=== PATIENT | female | born 1995 | race Caucasian/White ===

== ENCOUNTER → 2016-08-18 | Outpatient (CLI) | payer MEDICAID ==
[~2016-08-18] MED LIST: FERR-74 PO; HYDR-3812 PO; IBUP-1773 PO; NITR-65 PO; PREN1TAB79 PO
--- NOTE | 2016-08-18 14:13 | Diagnostic Imaging Report ---
EXAMINATION: OB ultrasound. INDICATION: Size and dates. COMPARISON: There are no recent studies available for comparison. FINDINGS: There is a gestational sac within the uterus containing a single live fetus. heart motion was noted and a rate of 176 bpm was recorded. The crown-rump length suggests the estimated gestational age is 9 weeks 1 day + / - 1 week. There were no obvious abnormalities identified. The amniotic fluid volume is within normal limits. At this time, it is not certain whether the placenta will develop. There is no pelvic mass or free fluid collection evident. IMPRESSION: 1. There is a single live intrauterine approximately 9 weeks 1 day gestation + / - 1 week. EDC is 03/22/2017. 2. There were no obvious abnormalities identified. If a more sensitive evaluation of the anatomy is desired, then a 10-12 week followup ultrasound exam should be obtained. Dictated by: Dictated on workstation # [id number]
== END ==
LOC: RAD 12:07
PROVIDERS: ATTEND Family Medicine
DX: Z34.81 Encounter for supervision of other normal pregnancy, first trimester (principal)
CPT/HCPCS: 76801

== ENCOUNTER 2016-09-17 02:58 | Emergency (ER) | payer MEDICAID, OTHER ==
[~2016-09-17] VITALS: Ht 170.2 cm; Wt 104.3 kg
[2016-09-17 03:27] LABS: BASOPHILS % (AUTO) 0 % (0-10); EOSINOPHILS # (AUTO) 0.1 10^3/uL (0.0-0.3); EOSINOPHILS % (AUTO) 1 % (0-10); LYMPHOCYTES # (AUTO) 2.6 X 10^3 (1.0-4.0); LYMPHOCYTES % (AUTO) 34 % (12-44); MEAN CORPUSCULAR HEMOGLOBIN 28 PG (25-34); MEAN CORPUSCULAR HGB CONC 35 G/DL (32-36); MEAN CORPUSCULAR VOLUME 79 FL (80-99); MEAN PLATELET VOLUME 11.8 FL (7.4-10.4); MONOCYTES # (AUTO) 0.5 X 10^3 (0.0-1.0); MONOCYTES % (AUTO) 7 % (0-12); NEUTROPHILS # (AUTO) 4.3 X 10^3 (1.8-7.8); NEUTROPHILS % (AUTO) 57 % (42-75); PLATELET COUNT 201 10^3/uL (130-400); RED BLOOD COUNT 4.27 10^6/uL (4.35-5.85); RED CELL DISTRIBUTION WIDTH 14.1 % (10.0-14.5); WHITE BLOOD COUNT 7.5 10^3/uL (4.3-11.0)
--- NOTE | 2016-09-17 03:44 | ED GU-Female ---
General Chief Complaint: -Female Stated Complaint: POSS MISCARRIAGE Nursing Triage Note: PT REPORTS BLEEDING ONSET 1 HOUR. SHE REPORTS SHE IS APPROX 14 WEEKS . SHE IS ALSO C/O ABD PAIN. Nursing Sepsis Screen: No Definite Risk Source: patient Exam Limitations: no limitations History of Present Illness Time seen by provider: 03:28 Initial Comments Here with report of vaginal bleeding. Reports that she is approximately 14 weeks and had sudden onset of bleeding. She reports that she had some lower abdominal pain is improved now. This occurred while she was at work at [employer]. Denies any injury. Timing/Duration: just prior to arrival Severity/Quality: moderate Location: suprapubic Radiation: vaginal Activities at Onset: other Sexual [place] History: less than 2 months ago, single partner (standing) Associated Symptoms: No dysuria, No fever/chills, No lower back pain, No nausea /vomiting, No urinary frequency Allergies and Home Medications Allergies Coded Allergies: No Known Drug Allergies (Unverified , 04/12/15) Home Medications Vit W-Ca,Fe,FA(<1 mg) 1 Each Tablet 1 TAB PO DAILY (Reported) Constitutional: see HPINo chills, No fever EENTM: no symptoms reported Respiratory: no symptoms reported Cardiovascular: no symptoms reported Gastrointestinal: see HPI abdominal painNo nausea, No vomiting Genitourinary: see HPI hematuria other (vaginal bleeding) : Yes Musculoskeletal: no symptoms reported Psychiatric/Neurological: No Symptoms Reported Past Irwqpgo-Phmovr-Ebahmd Hx Patient Social History Alcohol Use: Denies Use Recreational Drug Use: No Smoking Status: Never a Smoker 2nd Hand Smoke Exposure: No Recent Foreign Travel: No Contact w/Someone Who Travel: No Recent Infectious Disease Expo: No Recent Hopitalizations: No Immunizations Up To Date Tetanus Booster (TDap): Less than 5yrs Surgeries HX Surgeries: Yes (ACHILLES TENDON, WISDOM TEETH) Respiratory Hx Respiratory Disorders: No Cardiovascular Hx Cardiac Disorders: No Neurological Hx Neurological Disorders: Yes Neurological Disorders: Cerebral Palsy Reproductive System Hx Reproductive Disorders: Yes Sexually Transmitted Disease: Yes (Chlymidia tx'd end of September) HIV/AIDS: No Genitourinary Hx Genitourinary Disorders: Yes (UTI 11 weeks ago) Gastrointestinal Hx Gastrointestinal Disorders: No Musculoskeletal Hx Musculoskeletal Disorders: Yes ("spine rotated" ) Endocrine Hx Endocrine Disorders: No HEENT HX ENT Disorders: No Cancer Hx Cancer: No Psychosocial Hx Psychiatric Problems: Yes Behavioral Health Disorders: Depression Integumentary HX Skin/Integumentary Disorder: No Blood Transfusions Hx Blood Disorders: No Adverse Reaction to a Blood Tr: No Reviewed Nursing Assessment Reviewed/Agree w Nursing PMH: Yes Family Medical History Significant Family History: No Pertinent Family Hx Family Medial History: Arthritis FH: COPD (chronic obstructive pulmonary disease) FH: cancer Heart issue, unknown Hypertension Physical Exam Vital Signs Vital Sign - Last 12Hours 09/17/16 03:15 Temp 98.4 Pulse 80 Resp 16 B/P 130/84 Pulse Ox 98 O2 Delivery Room Air Capillary Refill : Less Than 3 Seconds General Appearance: WD/WN no apparent distress HEENT: TMs normal pharynx normal Neck: full range of motion supple Cardiovascular: regular rate, rhythm no murmur Respiratory: lungs clear normal breath sounds Gastrointestinal: non tender soft Back: normal inspection no CVA tenderness no vertebral tenderness Extremities: non-tender normal inspection Neurologic/Psychiatric: alert oriented x 3 Skin: normal color warm/dry Progress/Results/Core Measures Results/Orders Lab Results Laboratory Tests Test 09/17/16 03:10 09/17/16 03:15 Range/Units Urine Bacteria NEGATIVE /HPF Urine Bilirubin NEGATIVE NEGATIVE Urine Casts NONE /LPF Urine Clarity CLOUDY H Urine Color RED H Urine Crystals NONE /LPF Urine Culture Indicated NO Urine Glucose (UA) NEGATIVE NEGATIVE Urine Ketones NEGATIVE NEGATIVE Urine Leukocyte Esterase NEGATIVE NEGATIVE Urine Mucus LARGE H /LPF Urine Nitrite NEGATIVE NEGATIVE Urine Protein 4+ NEGATIVE Urine RBC TNTC H /HPF Urine RBC (Auto) 5+ H NEGATIVE Urine Specific [place] 1.020 1.016-1.022 Urine Urobilinogen NORMAL NORMAL MG/DL Urine WBC RARE /HPF Urine pH 6.5 5-9 Alanine Aminotransferase (ALT/SGPT) 14 0-55 U/L Albumin 4.0 3.2-4.5 G/DL Alkaline Phosphatase 92 40-136 U/L Anion Gap 13 5-14 MMOL/L Aspartate Amino Transf (AST/SGOT) 13 5-34 U/L BUN/Creatinine Ratio 11 Basophils # (Auto) 0.0 0.0-0.1 10^3/uL Basophils (%) (Auto) 0 0-10 % Blood Urea Nitrogen 7 7-18 MG/DL Calcium Level 9.1 8.5-10.1 MG/DL Carbon Dioxide Level 19 L 21-32 MMOL/L Chloride Level 105 98-107 MMOL/L Creatinine 0.61 0.60-1.30 MG/DL Eosinophils # (Auto) 0.1 0.0-0.3 10^3/uL Eosinophils (%) (Auto) 1 0-10 % Estimat Glomerular Filtration Rate > 60 Glucose Level 78 70-105 MG/DL Hematocrit 34 L 35-52 % Hemoglobin 11.8 11.5-16.0 G/DL Human Chorionic Gonadotropin, Quant 72900 H <5 MIU/ML Lymphocytes # (Auto) 2.6 1.0-4.0 X 10^3 Lymphocytes (%) (Auto) 34 12-44 % Mean Corpuscular Hemoglobin 28 25-34 PG Mean Corpuscular Hemoglobin Concent 35 32-36 G/DL Mean Corpuscular Volume 79 L 80-99 FL Mean Platelet Volume 11.8 H 7.4-10.4 FL Monocytes # (Auto) 0.5 0.0-1.0 X 10^3 Monocytes (%) (Auto) 7 0-12 % Neutrophils # (Auto) 4.3 1.8-7.8 X 10^3 Neutrophils (%) (Auto) 57 42-75 % Platelet Count 201 130-400 10^3/uL Potassium Level 3.3 L 3.6-5.0 MMOL/L Red Blood Count 4.27 L 4.35-5.85 10^6/uL Red Cell Distribution Width 14.1 10.0-14.5 % Sodium Level 137 135-145 MMOL/L Total Bilirubin 0.3 0.1-1.0 MG/DL Total Protein 6.9 6.4-8.2 G/DL White Blood Count 7.5 4.3-11.0 10^3/uL My Orders Orders-LOS SCHMIDT MD Cbc With Automated Diff (09/17/16 03:16) Hcg,Quantitative (09/17/16 03:16) Abo Rh Type (09/17/16 03:16) Us Ob Single Fetus<14 [id number] (09/17/16 03:16) Comprehensive Metabolic Panel (09/17/16 03:16) Ua Culture If Indicated (09/17/16 03:26) Vital Signs/I&O Vital Sign - Last 12Hours 09/17/16 03:15 Temp 98.4 Pulse 80 Resp 16 B/P 130/84 Pulse Ox 98 O2 Delivery Room Air Blood Pressure Mean: 99 Progress Note : Progress Note Seen and evaluated. Labs, UA and ultrasound ordered. Monitor patient. 0440: I have discussed the case with Dr. Blanton, on-call for OB. Patient is a patient of Dr. Brooks. She will be discharged home on pelvic rest and early follow-up. All findings and concerns were discussed with the patient who verbalize understanding. Discharged home with return precautions. Patient verbalize understanding instructions and agreement with plan. Diagnostic Imaging Diagonstic Imaging: Ultrasound Plain Films/CT/US/NM/MRI: pelvis Comments Single live intrauterine with an estimated gestational age of 13-6/7 per crown-rump length measurement of 7.67 cm. heart rate is 136. Large amount of subchorionic hemorrhage, measuring about 7.8 x 1.6 x 6.9 cm in anterior aspect of the uterus, warrants close follow-up. The cervix is closed and measures about 4.2 cm in length. Per statrad read. Departure Impression Impression: Primary Impression: Subchorionic hemorrhage in first trimester Additional Impression: Threatened miscarriage in early Disposition: 01 HOME, SELF-CARE Condition: Stable Departure-Patient Inst. Decision time for Depature: 04:46 Referrals: ISABELLA BROOKS MD (PCP/Family) Primary Care Physician Patient Instructions: Threatened Miscarriage (DC) Add. Discharge Instructions: All discharge instructions reviewed with patient and/or family. Voiced understanding. Pelvic rest until cleared by her doctor meaning no intercourse or intravaginal insertion. Follow-up with your doctor on Monday or Monday. Return for worse pain, vomiting, increased bleeding, increased cramping, fever or other concerns as needed. You will need to be off work until cleared by your physician. No lifting and no exertion until cleared by your physician. Work/School Note: Work Release Form Date Seen in the Emergency Department: Sep 17, 2016 Return to Work: Sep 22, 2016 Restrictions: Need Release from Doctor Copy Copies To 1: ISABELLA BROOKS MD, TIMOTHY D MD Sep 17, 2016 03:44
[2016-09-17 03:48] LABS: ALANINE AMINOTRANSFERASE 14 U/L (0-55); ANION GAP 13 MMOL/L (5-14); ASPARTATE AMINO TRANSFERASE 13 U/L (5-34); BILIRUBIN,TOTAL 0.3 MG/DL (0.1-1.0); BLOOD UREA NITROGEN 7 MG/DL (7-18); BUN/CREATININE RATIO 11; CALCIUM 9.1 MG/DL (8.5-10.1); CARBON DIOXIDE 19 MMOL/L (21-32); CHLORIDE 105 MMOL/L (98-107); CREATININE SERUM 0.61 MG/DL (0.60-1.30); GFR ESTIMATED > 60; GLUCOSE 78 MG/DL (70-105); POTASSIUM 3.3 MMOL/L (3.6-5.0); SODIUM 137 MMOL/L (135-145); TOTAL PROTEIN 6.9 G/DL (6.4-8.2)
[2016-09-17 03:53] LABS: BILIRUBIN,URINE NEGATIVE (NEGATIVE); KETONES,URINE NEGATIVE (NEGATIVE); LEUKOCYTE ESTERASE ,URINE NEGATIVE (NEGATIVE); NITRITE,URINE NEGATIVE (NEGATIVE); PH,URINE 6.5 (5-9); PROTEIN,URINE 4+ (NEGATIVE); UROBILINOGEN,URINE NORMAL (NORMAL); WBC,URINE RARE /HPF
[2016-09-17 04:54] VITALS: BP 130/84
--- NOTE | 2016-09-17 07:24 | Diagnostic Imaging Report ---
INDICATION: Bleeding. TECHNIQUE: Multiple realtime grayscale images were obtained over the gravid uterus in various projections. FINDINGS: There is a single living intrauterine with sonographically estimated gestational age of 13 weeks 6 days. This is based on a crown-rump length of 7.67 cm. The heart rate is 136 beats per minute. There is a large amount of subchorionic hemorrhage measuring 7.8 x 1.6 x 6.9 cm. This is in the anterior aspect of the uterus. This warrants close followup. The cervix is closed and measures 4.2 cm in length. IMPRESSION: Single living intrauterine with sonographically estimated gestational age of 13 weeks 6 days and estimated date of confinement of March 19, 2017. Subchorionic hemorrhage which warrants close followup. Otherwise unremarkable. Dictated by: Dictated on workstation # [id number]
== END 2016-09-17 04:54 | disposition home or self-care (01) ==
LOC: EDUNIT# 02:58 → ER 03:00
DX: O20.8 Other hemorrhage in early pregnancy (principal); Z3A.13 13 weeks gestation of pregnancy
CPT/HCPCS: 36415; 76801; 80053; 81000; 84702; 85025; 86900; 86901; 99283

== ENCOUNTER 2017-02-05 12:33 | Outpatient (CLI) | payer MEDICAID ==
[~2017-02-05] VITALS: Ht 170.2 cm; Wt 107.0 kg
[2017-02-05 13:15] VITALS: BP 127/62
[2017-02-05] MEDS ORDERED: D5 LR IV SOLUTION 1,000 ML IV SCH (14:00)
--- NOTE | 2017-02-06 12:14 | Physician Query-Final Dx ---
AYAZ LÓPEZ 02/06/17 1214: Clinic Account Progress/Dx Physician Query: Please give diagnosis Date of Service Feb 05, 2017 at 12:33 DANIS CHRISTINA MD 02/07/17 1029: Clinic Account Progress/Dx DIAGNOSIS: Diagnosis false labor AYAZ LÓPEZ Feb 06, 2017 12:14 DANIS CHRISTINA MD Feb 07, 2017 10:29
== END 2017-02-05 15:31 | disposition home or self-care (01) ==
LOC: LDRP 12:33 → WSo 12:33
PROVIDERS: ATTEND Obstetrics & Gynecology
DX: O47.03 False labor before 37 completed weeks of gestation, third trimester (principal); Z3A.34 34 weeks gestation of pregnancy
CPT/HCPCS: 96360; 99214

== ENCOUNTER 2017-08-23 22:41 | Emergency (ER) | payer MEDICAID ==
[~2017-08-23] VITALS: Ht 170.2 cm; Wt 110.2 kg
[~2017-08-23 22:41] MED LIST changes: +ACHD5005 PO; -FERR-74 PO; +FERR325T18 PO; -HYDR-3812 PO
--- OUTSIDE RECORDS SUMMARY | 2017-08-23 23:47 | XMS REPORT ---
Author ISABELLA Gurrola [facility] eClinicalWorks Address Unknown Phone Unavailable Care Team Providers Care Plywood Layup Line Back Feeder Name Role Phone ISABELLA NEWSOME CP Unavailable Allergies No Known Allergies Problems Problem Type Condition ICD-9 Code Onset Dates Condition Status Problem Supervision of normal first V22.0 Active Medications No Known Medications Results No Known Results Summary Purpose eClinicalWorks Submission
--- OUTSIDE RECORDS SUMMARY | 2017-08-23 23:47 | XMS REPORT ---
Author Author ISABELLA NEWSOME [facility] [place] eClinicalWorks Address Unknown Phone Unavailable Care Team Providers Care Couturiere Name Role Phone ISABELLA NEWSOME Unavailable Allergies No Known Allergies Problems Problem Type Condition Code Onset Dates Condition Status Problem Supervision of normal first V22.0 Active Medications No Known Medications Results No Known Results Summary Purpose eClinicalWorks Submission
--- OUTSIDE RECORDS SUMMARY | 2017-08-23 23:47 | XMS REPORT ---
Author ELIANA Gaytan [facility] eClinicalWorks Address Unknown Phone Unavailable Care Team Providers Care Labor Arbitrator Hearing Office Name Role Phone ELIANA VERAS CP Unavailable Allergies No Known Allergies Problems Problem Type Condition Code Onset Dates Condition Status Problem Elevated blood pressure I10 Active Problem Anemia D64.9 Active Problem History of anemia Z86.2 Active Problem Elevated liver enzymes R74.8 Active Problem Abnormal glucose R73.09 Active Medications No Known Medications Results No Known Results Summary Purpose eClinicalWorks Submission
--- OUTSIDE RECORDS SUMMARY | 2017-08-23 23:47 | XMS REPORT ---
Author Author ISABELLA NEWSOME [facility] eClinicalWorks Address Unknown Phone Unavailable Care Team Providers Care Elevator Inspector Name Role Phone ISABELLA NEWSOME CP Unavailable Allergies No Known Allergies Problems Problem Type Condition Code Onset Dates Condition Status Assessment Supervision of normal first V22.0 Active Problem Supervision of normal first V22.0 Active Medications No Known Medications Procedures Procedure Coding System Code Date Office Visit, Est Pt., Level 3 CPT-4 11130 Apr 15, 2015 COMPLETE CBC W/AUTO DIFF WBC CPT-4 47313 Apr 15, 2015 URINE-NO MICRO CPT-4 87608 Apr 15, 2015 VENIPUNCT, ROUTINE* CPT-4 86159 Apr 15, 2015 GLUCOSE TEST CPT-4 29907 Apr 15, 2015 Vital Signs Date/Time: Apr 15, 2015 Temperature 97.4 F Weight 214.7 lbs Height 67 in BMI 33.627 Index Blood Pressure Diastolic 74 mmHg Blood Pressure Systolic 122 mmHg Cardiac Monitoring Heart Rate 76 bpm BMIPercentile 96.58 % Wt Percentile 98.4 % Results Name Result Date Reference Range Unit Abnormality Flag ROUTINE VENIPUNCTURE GLUCOSE SANDY 1 HOUR Summary Purpose eClinicalWorks Submission
--- OUTSIDE RECORDS SUMMARY | 2017-08-23 23:47 | XMS REPORT ---
Author ISABELLA Gurrola [facility] eClinicalWorks Address Unknown Phone Unavailable Care Team Providers Care Director Of Graduate Admissions Name Role Phone ISABELLA NEWSOME CP Unavailable Allergies No Known Allergies Problems Problem Type Condition ICD-9 Code Onset Dates Condition Status Problem Supervision of normal first V22.0 Active Medications No Known Medications Results No Known Results Summary Purpose eClinicalWorks Submission
--- OUTSIDE RECORDS SUMMARY | 2017-08-23 23:47 | XMS REPORT ---
Author ISABELLA Gurrola [facility] eClinicalWorks Address Unknown Phone Unavailable Care Team Providers Care Textile Scrap Salvager Name Role Phone ISABELLA NEWSOME CP Unavailable Allergies No Known Allergies Problems Problem Type Condition ICD-9 Code Onset Dates Condition Status Problem Supervision of normal first V22.0 Active Medications No Known Medications Results No Known Results Summary Purpose eClinicalWorks Submission
--- OUTSIDE RECORDS SUMMARY | 2017-08-23 23:47 | XMS REPORT ---
Author Author ISABELLA NEWSOME [facility] eClinicalWorks Address Unknown Phone Unavailable Care Team Providers Care Framing Mechanic Name Role Phone ISABELLA NEWSOME Unavailable Allergies No Known Allergies Problems Problem Type Condition Code Onset Dates Condition Status Assessment Encounter for supervision of other normal , third trimester Z34.83 Active Problem Supervision of normal first V22.0 Active Medications No Known Medications Procedures Procedure Coding System Code Date Office Visit, Est Pt., Level 3 CPT-4 51826 May 13, 2015 URINE-NO MICRO CPT-4 09732 May 13, 2015 Vital Signs Date/Time: May 13, 2015 Temperature 97.4 F Weight 229.7 lbs Height 67 in BMI 35.976 Index Blood Pressure Diastolic 82 mmHg Blood Pressure Systolic 156 mmHg Cardiac Monitoring Heart Rate 98 bpm BMIPercentile 97.52 % Wt Percentile 98.97 % Results Name Result Date Reference Range Unit Abnormality Flag UA OB DIP (IN HOUSE) Summary Purpose eClinicalWorks Submission
--- OUTSIDE RECORDS SUMMARY | 2017-08-23 23:48 | XMS REPORT ---
Author Author ISABELLA NEWSOME [facility] eClinicalWorks Address Unknown Phone Unavailable Care Team Providers Care Service Agent Name Role Phone ISABELLA NEWSOME CP Unavailable Allergies, Adverse Reactions, Alerts Substance Reaction Event Type N.K.D.A. Info Not Available Non Drug Allergy Problems Problem Type Condition Code Onset Dates Condition Status Assessment Supervision of normal first V22.0 Active Assessment Z33.1 Active Problem Supervision of normal first V22.0 Active Medications Medication Code System Code Instructions Start Date End Date Status Dosage Iron [facility] [phone] 325 (65 Fe) MG Orally Once a day 1 tablet Procedures Procedure Coding System Code Date Office Visit, Est Pt., Level 3 CPT-4 28651 Jun 10, 2015 DETECT AGNT MULT, DNA, AMPLI CPT-4 95743 Jun 10, 2015 URINALYSIS, AUTO, W/O SCOPE CPT-4 66191 Jun 10, 2015 Vital Signs Date/Time: Jun 10, 2015 Temperature 97.9 F Weight 236.8 lbs Height 67 in BMI 37.088 Index Blood Pressure Diastolic 82 mmHg Blood Pressure Systolic 134 mmHg Cardiac Monitoring Heart Rate 98 bpm Results Name Result Date Reference Range Unit Abnormality Flag CULTURE, GROUP B STREP (VAGINAL) Summary Purpose eClinicalWorks Submission
--- OUTSIDE RECORDS SUMMARY | 2017-08-23 23:48 | XMS REPORT ---
Author Author ISABELLA NEWSOME [facility] [place] eClinicalWorks Address Unknown Phone Unavailable Care Team Providers Care Risk Assessment Consultant Name Role Phone ISABELLA NEWSOME CP Unavailable Allergies, Adverse Reactions, Alerts Substance Reaction Event Type N.K.D.A. Info Not Available Non Drug Allergy Problems Problem Type Condition Code Onset Dates Condition Status Assessment Encounter for supervision of other normal , third trimester Z34.83 Active Problem Supervision of normal first V22.0 Active Medications Medication Code System Code Instructions Start Date End Date Status Dosage Iron [facility] [phone] 325 (65 Fe) MG Orally Once a day 1 tablet Procedures Procedure Coding System Code Date Office Visit, Est Pt., Level 3 CPT-4 47133 Jun 17, 2015 URINE-NO MICRO CPT-4 73717 Jun 17, 2015 Vital Signs Date/Time: Jun 17, 2015 Temperature 97.6 F Weight 238.5 lbs Height 67 in BMI 37.354 Index Blood Pressure Diastolic 80 mmHg Blood Pressure Systolic 140 mmHg Cardiac Monitoring Heart Rate 88 bpm BMIPercentile 97.88 % Wt Percentile 99.19 % Results No Known Results Summary Purpose eClinicalWorks Submission
--- OUTSIDE RECORDS SUMMARY | 2017-08-23 23:48 | XMS REPORT ---
Author ELIANA Gaytan Organization eClinicalWorks Address Unknown Phone Unavailable Care Team Providers Care Salesperson Handbags Name Role Phone ELIANA VERAS CP Unavailable Allergies No Known Allergies Problems Problem Type Condition ICD-9 Code Onset Dates Condition Status Problem Supervision of normal first V22.0 Active Medications No Known Medications Results No Known Results Summary Purpose eClinicalWorks Submission
--- OUTSIDE RECORDS SUMMARY | 2017-08-23 23:48 | XMS REPORT ---
Author Author ISABELLA NEWSOME Organization eClinicalWorks Address Unknown Phone Unavailable Care Team Providers Care Automotive Service Director Name Role Phone ISABELLA NEWSOME CP Unavailable Allergies No Known Allergies Problems Problem Type Condition ICD-9 Code Onset Dates Condition Status Assessment Supervision of normal first V22.0 Active Problem Supervision of normal first V22.0 Active Medications No Known Medications Procedures Procedure Coding System Code Date Office Visit, Est Pt., Level 3 CPT-4 91352 Mar 18, 2015 URINE-NO MICRO CPT-4 20615 Mar 18, 2015 Vital Signs Date/Time: Mar 18, 2015 Temperature 98.0 F Weight 208.0 lbs Height 67 in BMI 32.577 Index Blood Pressure Diastolic 70 mmHg Blood Pressure Systolic 142 mmHg Cardiac Monitoring Heart Rate 78 bpm BMIPercentile 95.99 % Wt Percentile 98.02 % Results Name Result Date Reference Range Unit Abnormality Flag UA OB DIP (IN HOUSE) Summary Purpose eClinicalWorks Submission
--- OUTSIDE RECORDS SUMMARY | 2017-08-23 23:48 | XMS REPORT ---
Author Author ISABELLA NEWSOME Organization [facility] Address [address] [place] [address] Care Team Providers Care Hvac Sales Engineer Name Role Phone ISABELLA NEWSOME Unavailable PROBLEMS Type Condition ICD9-CM Code [id number] Code Onset Dates Condition Status SNOMED Code Problem History of anemia Z86.2 Active 075313826 Problem Anemia D64.9 Active 883361979 Problem Elevated liver enzymes R74.8 Active 247577788 Problem Elevated blood pressure I10 Active 62807390 Problem Abnormal glucose R73.09 Active 522434277 ALLERGIES No Known Allergies SOCIAL HISTORY Never Assessed PLAN OF CARE Activity Details Follow Up 4 Weeks Reason: VITAL SIGNS Height 67 in 2016-09-07 Weight 226.3 lbs 2016-09-07 Temperature 98.0 degrees Fahrenheit 2016-09-07 Heart Rate 96 bpm 2016-09-07 Respiratory Rate 18 2016-09-07 BMI 35.444 kg/m2 2016-09-07 Blood pressure systolic 132 mmHg 2016-09-07 Blood pressure diastolic 78 mmHg 2016-09-07 MEDICATIONS Medication Instructions Dosage Frequency Start Date End Date Duration Status 28-0.8 MG Active RESULTS Name Result Date Reference Range UA OB DIP (IN HOUSE) 2016-09-07 Glucose Negative Protein Negative PROCEDURES Procedure Date Ordered Result Body Site URINE-NO MICRO Sep 07, 2016 IMMUNIZATIONS No Known Immunizations MEDICAL (GENERAL) HISTORY Type Description Date Medical History depression Medical History cerebral palsy Medical History anemia Surgical History eft achilles tendon repair Surgical History wisdom teeth extraction Hospitalization History Surgery(s)/Childbirth(s) only
--- OUTSIDE RECORDS SUMMARY | 2017-08-23 23:48 | XMS REPORT ---
Author Author ISABELLA NEWSOME [facility] [place] eClinicalWorks Address Unknown Phone Unavailable Care Team Providers Care Assembly Leader Name Role Phone ISABELLA NEWSOME CP Unavailable [...] Date End Date Status Dosage Iron [facility] [phone] 325 (65 Fe) MG Orally Once a day 1 tablet Procedures Procedure Coding System Code Date Office Visit, Est Pt., Level 3 CPT-4 30676 Jun 03, 2015 URINE-NO MICRO CPT-4 66842 Jun 03, 2015 Vital Signs Date/Time: Jun 03, 2015 Temperature 97.8 F Weight 237.1 lbs Height 67 in BMI 37.135 Index Blood Pressure Diastolic 80 mmHg Blood Pressure Systolic 132 mmHg Cardiac Monitoring Heart Rate 98 bpm BMIPercentile 97.82 % Wt Percentile 99.16 % Results Name Result Date Reference Range Unit Abnormality Flag UA OB DIP (IN HOUSE) Summary Purpose eClinicalWorks Submission
--- OUTSIDE RECORDS SUMMARY | 2017-08-23 23:48 | XMS REPORT ---
Author Author ISABELLA NEWSOME [facility] eClinicalWorks Address Unknown Phone Unavailable Care Team Providers Care Duck Bill Operator Name Role Phone ISABELLA NEWSOME Unavailable Allergies No Known Allergies Problems Problem Type Condition Code Onset Dates Condition Status Problem Supervision of normal first V22.0 Active Medications No Known Medications Results No Known Results Summary Purpose eClinicalWorks Submission
--- OUTSIDE RECORDS SUMMARY | 2017-08-23 23:48 | XMS REPORT ---
Author Author ELIANA VERAS [facility] Address [address] [place] [address] Care Team Providers Care Ct Scan Technician Name Role Phone ELIANA VERAS Unavailable PROBLEMS Type Condition ICD9-CM Code [id number] Code Onset Dates Condition Status SNOMED Code Problem History of anemia Z86.2 Active 373002759 Problem Elevated blood pressure I10 Active 15220467 Problem Abnormal glucose R73.09 Active 167278472 Problem Anemia D64.9 Active 537059272 Problem Elevated liver enzymes R74.8 Active 572838920 ALLERGIES Unknown Allergies SOCIAL HISTORY No smoking Hx information available PLAN OF CARE VITAL SIGNS MEDICATIONS Unknown Medications RESULTS No Results PROCEDURES No Known procedures IMMUNIZATIONS No Known Immunizations
--- OUTSIDE RECORDS SUMMARY | 2017-08-23 23:48 | XMS REPORT ---
Author Author ISABELLA NEWSOME [facility] eClinicalWorks Address Unknown Phone Unavailable Care Team Providers Care Gear Shaper Name Role Phone ISABELLA NEWSOME CP Unavailable Allergies, Adverse Reactions, Alerts Substance Reaction Event Type N.K.D.A. Info Not Available Non Drug Allergy Problems Problem Type Condition Code Onset Dates Condition Status Assessment Supervision of normal first V22.0 Active Assessment Encounter for related examination in third trimester Z34.83 Active Problem Supervision of normal first V22.0 Active Medications No Known Medications Procedures Procedure Coding System Code Date Office Visit, Est Pt., Level 3 CPT-4 46159 May 27, 2015 URINE-NO MICRO CPT-4 06458 May 27, 2015 Vital Signs Date/Time: May 27, 2015 Temperature 97.9 F Weight 231.1 lbs Height 67 in BMI 36.195 Index Blood Pressure Diastolic 72 mmHg Blood Pressure Systolic 142 mmHg Cardiac Monitoring Heart Rate 100 bpm Results Name Result Date Reference Range Unit Abnormality Flag UA OB DIP (IN HOUSE) Summary Purpose eClinicalWorks Submission
--- OUTSIDE RECORDS SUMMARY | 2017-08-23 23:48 | XMS REPORT ---
Author Author MAYRA BEY [facility] Address [address] [place] [address] Care Team Providers Care Special Investigation Unit Investigator Name Role Phone MAYRA BEY Unavailable PROBLEMS Type Condition ICD9-CM Code XWH69-SD Code Onset Dates Condition Status SNOMED Code Problem History of anemia Z86.2 Active 698731488 Problem Elevated blood pressure I10 Active 38546346 Problem Abnormal glucose R73.09 Active 492782041 Problem Anemia D64.9 Active 060038822 Problem Elevated liver enzymes R74.8 Active 628377733 ALLERGIES Unknown Allergies SOCIAL HISTORY No smoking Hx information available PLAN OF CARE VITAL SIGNS MEDICATIONS No Known Medications RESULTS Name Result Date Reference Range TEST, URINE (IN HOUSE) 2016-07-20 RESULTS Positive Lot # [id number] Control + Exp date 10/2017 PROCEDURES Procedure Date Ordered Related Diagnosis Body Site URINE TEST Jul 20, 2016 IMMUNIZATIONS No Known Immunizations
--- OUTSIDE RECORDS SUMMARY | 2017-08-23 23:48 | XMS REPORT ---
Author Author ISABELLA NEWSOME Organization [facility] [place] Address [address] [place] [address] Care Team Providers Care Shake Loader Name Role Phone ISABELLA NEWSOME Unavailable PROBLEMS Type Condition ICD9-CM Code BAQ26-CY Code Onset Dates Condition Status SNOMED Code Problem History of anemia Z86.2 Active 903081680 Problem Anemia D64.9 Active 367326399 Problem Elevated liver enzymes R74.8 Active 330481505 Problem Elevated blood pressure I10 Active 93564655 Problem Abnormal glucose R73.09 Active 565861469 ALLERGIES No Information SOCIAL HISTORY Never Assessed PLAN OF CARE Activity Details Follow Up 4 Weeks Reason: VITAL SIGNS Height 67 in 2016-09-21 Weight 224.6 lbs 2016-09-21 Temperature 98.6 degrees Fahrenheit 2016-09-21 Heart Rate 78 bpm 2016-09-21 Respiratory Rate 18 2016-09-21 BMI 35.177 kg/m2 2016-09-21 Blood pressure systolic 122 mmHg 2016-09-21 Blood pressure diastolic 74 mmHg 2016-09-21 MEDICATIONS Medication Instructions Dosage Frequency Start Date End Date Duration Status 28-0.8 MG Active RESULTS No Results PROCEDURES No Known procedures IMMUNIZATIONS No Known Immunizations MEDICAL (GENERAL) HISTORY Type Description Date Medical History depression Medical History cerebral palsy Medical History anemia Surgical History eft achilles tendon repair Surgical History wisdom teeth extraction Hospitalization History Surgery(s)/Childbirth(s) only
--- OUTSIDE RECORDS SUMMARY | 2017-08-23 23:48 | XMS REPORT ---
Author Author ISABELLA NEWSOME [facility] eClinicalWorks Address Unknown Phone Unavailable Care Team Providers Care Ceo And Founder Name Role Phone ISABELLA NEWSOME Unavailable Allergies No Known Allergies Problems Problem Type Condition Code Onset Dates Condition Status Assessment Supervision of normal first V22.0 Active Problem Supervision of normal first V22.0 Active Medications No Known Medications Procedures Procedure Coding System Code Date Office Visit, Est Pt., Level 3 CPT-4 85498 Jun 24, 2015 URINE-NO MICRO CPT-4 61667 Jun 24, 2015 Vital Signs Date/Time: Jun 24, 2015 Temperature 98.0 F Weight 243.3 lbs Height 67 in BMI 38.106 Index Blood Pressure Diastolic 78 mmHg Blood Pressure Systolic 148 mmHg Cardiac Monitoring Heart Rate 88 bpm BMIPercentile 98.05 % Wt Percentile 99.28 % Results Name Result Date Reference Range Unit Abnormality Flag UA OB DIP (IN HOUSE) ----Glucose negative [id number] ----Protein trace [id number] Summary Purpose eClinicalWorks Submission
--- OUTSIDE RECORDS SUMMARY | 2017-08-23 23:48 | XMS REPORT ---
Author ISABELLA Gurrola [facility] eClinicalWorks Address Unknown Phone Unavailable Care Team Providers Care Rn Transfer Name Role Phone ISABELLA NEWSOME CP Unavailable Allergies No Known Allergies Problems Problem Type Condition Code Onset Dates Condition Status Assessment Encounter for supervision of other normal , third trimester Z34.83 Active Assessment Encounter for related examination in third trimester Z34.83 Active Problem Supervision of normal first V22.0 Active Medications No Known Medications Procedures Procedure Coding System Code Date URINE-NO MICRO CPT-4 92470 Apr 29, 2015 TDAP (BOOSTRIX) CPT-4 28418 Apr 29, 2015 Office Visit, Est Pt., Level 3 CPT-4 34944 Apr 29, 2015 SINGLE IMMUNIZATION ADMIN CPT-4 36858 Apr 29, 2015 Vital Signs Date/Time: Apr 29, 2015 Temperature 97.3 F Weight 226.6 lbs Height 67 in BMI 35.491 Index Blood Pressure Diastolic 82 mmHg Blood Pressure Systolic 144 mmHg Cardiac Monitoring Heart Rate 80 bpm BMIPercentile 97.35 % Wt Percentile 98.87 % Results Name Result Date Reference Range Unit Abnormality Flag UA OB DIP (IN HOUSE) Immunizations Vaccine Administration Date Influenza (History) Apr 29, 2015 TDAP (BOOSTRIX) Apr 29, 2015 Summary Purpose eClinicalWorks Submission
--- OUTSIDE RECORDS SUMMARY | 2017-08-23 23:48 | XMS REPORT ---
Author Author ISABELLA NEWSOME Organization [facility] Address [address] [place] [address] Care Team Providers Care Solid Waste Truck Driver Name Role Phone ISABELLA NEWSOME Unavailable PROBLEMS Type Condition ICD9-CM Code YKO45-CI Code Onset Dates Condition Status SNOMED Code Problem History of anemia Z86.2 Active 524023907 Problem Anemia D64.9 Active 267971796 Problem Elevated liver enzymes R74.8 Active 308114890 Problem Elevated blood pressure I10 Active 63627902 Problem Abnormal glucose R73.09 Active 916969590 ALLERGIES Substance Reaction Event Type Date Status N.K.D.A. Unknown Non Drug Allergy Jul, Unknown SOCIAL HISTORY No smoking Hx information available PLAN OF CARE Activity Details Follow Up 4 Weeks Reason: VITAL SIGNS Height 67 in 2016-08-10 Weight 233 lbs 2016-08-10 Temperature 98 degrees Fahrenheit 2016-08-10 Heart Rate 100 bpm 2016-08-10 Respiratory Rate 18 2016-08-10 BMI 36.493 kg/m2 2016-08-10 MEDICATIONS No Known Medications RESULTS Name Result Date Reference Range TRICHOMONAS (IN HOUSE) 2016-08-10 TRICHOMONAS negative Control + Lot # [id number] Exp date 06/09 URINE DRUG SCREEN (IN HOUSE) 2016-08-10 Lot # [id number] Exp date 02/07 Control + COCAINE negative AMPH negative MTD negative THC negative OPIATE negative BENZO negative PCP negative BAR negative OXY negative MAMP negative TCA negative BUP negative MDMA negative BACTERIAL VAGINOSIS (IN HOUSE) 2016-08-10 RESULTS negative Control + Lot # [id number] Exp date 03/09 TSH () 2016-08-10 TSH 1.500 0.450-4.500 ANTIBODY SCREEN 2016-08-10 Antibody Screen Negative Negative BLOOD TYPE/RH FACTOR 2016-08-10 ABO Grouping A Rh Factor Positive RUBELLA ANTIBODIES, IgG 2016-08-10 Rubella Antibodies, IgG 1.65 Immune >0.99 CULTURE, GENITAL 2016-08-10 Genital Culture, Routine Final report Result 1 CULTURE, URINE 2016-08-10 Urine Culture, Routine Final report Result 1 UA LONG DIP (IN HOUSE) 2016-08-11 Lot # [id number] Exp date 05/2017 Clarity slightly cloudy Color dark yellow Odor no GLU neg CHAPO neg KET neg SG 1.025 BLO trace-intact pH 6.0 Protein trace URO 0.2 NIT neg LESVIA neg Lot # Exp date Ultrasound : OB, Early <14 WEEKS 2016-08-18 GC/CHLAM PROBE (STATE) 2016-08-10 CHLAMYDIA Negative GC Negative SYPHILIS (STATE) 2016-08-10 HIV (STATE) 2016-08-10 HEP B SURFACE ANTIGEN (STATE) 2016-08-10 HEP B ANTIBODY non reactive HEP B ANTIBODY (RML) HEP B ANTIBODY (STATE) CBC 2016-08-10 WBC 6.6 3.4-10.8 RBC 4.57 3.77-5.28 Hemoglobin 12.2 11.1-15.9 Hematocrit 35.5 34.0-46.6 MCV 78 79-97 MCH 26.7 26.6-33.0 MCHC 34.4 31.5-35.7 RDW 14.6 12.3-15.4 Platelets 246 150-379 Neutrophils 60 Lymphs 32 Monocytes 7 Eos 1 Basos 0 Neutrophils (Absolute) 3.9 1.4-7.0 Lymphs (Absolute) 2.1 0.7-3.1 Monocytes(Absolute) 0.4 0.1-0.9 Eos (Absolute) 0.1 0.0-0.4 Baso (Absolute) 0.0 0.0-0.2 Immature Granulocytes 0 Immature Grans (Abs) 0.0 0.0-0.1 PROCEDURES Procedure Date Ordered Related Diagnosis Body Site CULTURE, BACTERIA, OTHER Aug 10, 2016 BLOOD TYPING, ABO Aug 10, 2016 TALBOT VAG, DNA, DIR PROBE Aug 10, 2016 RUBELLA ANTIBODY Aug 10, 2016 COMPLETE CBC W/AUTO DIFF WBC Aug 10, 2016 BLOOD TYPING, RH (D) Aug 10, 2016 URINE CULTURE/COLONY COUNT Aug 10, 2016 TRICHOMONAS ASSAY W/OPTIC Aug 10, 2016 Office Visit, Est Pt., Level 4 Aug 10, 2016 RBC ANTIBODY SCREEN Aug 10, 2016 VENIPUNCT, ROUTINE* Aug 10, 2016 URINALYSIS, AUTO, W/O SCOPE Aug 10, 2016 ASSAY THYROID STIM HORMONE Aug 10, 2016 IMMUNIZATIONS No Known Immunizations
--- OUTSIDE RECORDS SUMMARY | 2017-08-23 23:48 | XMS REPORT ---
Author ISABELLA Gurrola [facility] eClinicalWorks Address Unknown Phone Unavailable Care Team Providers Care Molasses And Caramel Operator Name Role Phone ISABELLA NEWSOME CP Unavailable Allergies No Known Allergies Problems Problem Type Condition Code Onset Dates Condition Status Problem Supervision of normal first V22.0 Active Medications No Known Medications Results No Known Results Immunizations Vaccine Administration Date Influenza (History) Apr 29, 2015 Summary Purpose eClinicalWorks Submission
--- OUTSIDE RECORDS SUMMARY | 2017-08-23 23:48 | XMS REPORT ---
Author ISABELLA Gurrola [facility] eClinicalWorks Address Unknown Phone Unavailable Care Team Providers Care Environmental Educator Name Role Phone ISABELLA NEWSOME CP Unavailable Allergies No Known Allergies Problems Problem Type Condition ICD-9 Code Onset Dates Condition Status Problem Supervision of normal first V22.0 Active Medications No Known Medications Results No Known Results Summary Purpose eClinicalWorks Submission
--- OUTSIDE RECORDS SUMMARY | 2017-08-23 23:48 | XMS REPORT ---
Author Author ISABELLA NEWSOME [facility] eClinicalWorks Address Unknown Phone Unavailable Care Team Providers Care Painter Railroad Car Name Role Phone ISABELLA NEWSOME Unavailable Allergies No Known Allergies Problems Problem Type Condition Code Onset Dates Condition Status Problem Supervision of normal first V22.0 Active Medications No Known Medications Results No Known Results Summary Purpose eClinicalWorks Submission
--- OUTSIDE RECORDS SUMMARY | 2017-08-23 23:48 | XMS REPORT ---
Author ISABELLA Gurrola [facility] eClinicalWorks Address Unknown Phone Unavailable Care Team Providers Care Sizing Machine And Drier Operator Name Role Phone ISABELLA NEWSOME CP Unavailable Allergies No Known Allergies Problems Problem Type Condition Code Onset Dates Condition Status Problem Supervision of normal first V22.0 Active Medications No Known Medications Results No Known Results Summary Purpose eClinicalWorks Submission
--- OUTSIDE RECORDS SUMMARY | 2017-08-23 23:49 | XMS REPORT ---
Author ELIANA Gaytan [facility] eClinicalWorks Address Unknown Phone Unavailable Care Team Providers Care Industrial Truck Driver Name Role Phone ELIANA VERAS CP Unavailable [...]
--- OUTSIDE RECORDS SUMMARY | 2017-08-23 23:49 | XMS REPORT | Continuity of Care Document ---
Author Author [facility] Organization [facility] Address Unknown Phone Unavailable Allergies Active Description Code Type Severity Reaction Onset Reported/Identified Relationship to Patient Clinical Status Yes No Known Drug Allergies [id number] Drug Allergy Unknown N/A 04/12/2015 Medications There is no data. Problems Date Dx Coded Attending Type Code Diagnosis Diagnosed By 03/09/2015 SRIDEVI RAMIREZ APRN Ot V22.0 04/12/2015 SRIDEVI RAMIREZ APRN Ot V22.0 04/12/2015 ISABELLA NEWSOME MD Ot 599.0 URIN TRACT INFECTION NOS 04/12/2015 ISABELLA NEWSOME MD Ot 646.63 INFECTION-ANTEPARTUM 04/12/2015 ISABELLA NEWSOME MD, Ot V04.81 ND FOR PROPHYLACTIC VACCIN AND INOCULATI 05/06/2015 ISABELLA NEWSOME MD, Ot R73.09 06/30/2015 ISABELLA NEWSOME MD, Ot R73.09 07/03/2015 ISABELLA NEWSOME MD, Ot O70.3 FOURTH DEGREE PERINEAL LACERATION DURING 07/03/2015 ISABELLA NEWSOME MD, Ot O90.81 ANEMIA OF THE PUERPERIUM 07/03/2015 ISABELLA NEWSOME MD, Ot Z37.0 SINGLE LIVE 07/03/2015 ISABELLA NEWSOME MD, Ot Z3A.39 39 WEEKS GESTATION OF 07/22/2016 ISABELLA NEWSOME MD, Ot R73.09 OTHER ABNORMAL GLUCOSE 07/22/2016 ISABELLA NEWSOME MD, Ot R73.09 OTHER ABNORMAL GLUCOSE 07/22/2016 MICHAEL SPARKS, CARINA Rodriguez Ot G80.9 CEREBRAL PALSY, UNSPECIFIED 07/22/2016 MICHAEL SPARKS, CARINA Rodriguez Ot M54.5 LOW BACK PAIN 07/22/2016 MICHAEL SPARKS, CARINA Rodriguez Ot O99.89 OTH DISEASES AND CONDITIONS COMPL PREG/C 07/22/2016 CARINA RODRIGUEZ MD Ot Z3A.01 LESS THAN 8 WEEKS GESTATION OF 07/26/2016 CARINA RODRIGUEZ MD Ot G80.9 CEREBRAL PALSY, UNSPECIFIED 07/26/2016 CARINA RODRIGUEZ MD, Ot M54.5 LOW BACK PAIN 07/26/2016 CARINA RODRIGUEZ MD Ot O99.89 OTH DISEASES AND CONDITIONS COMPL PREG/C 07/26/2016 CARINA RODRIGUEZ MD Ot Z3A.01 LESS THAN 8 WEEKS GESTATION OF 08/18/2016 ISABELLA NEWSOME MD Ot R73.09 OTHER ABNORMAL GLUCOSE 08/19/2016 ISABELLA NEWSOME MD, Ot Z34.81 ENCOUNTER FOR SUPRVSN OF NORMAL PREGNANC 08/22/2016 ISABELLA NEWSOME MD, Ot Z34.81 ENCOUNTER FOR SUPRVSN OF NORMAL PREGNANC 09/17/2016 ISABELLA NEWSOME MD, Ot R73.09 OTHER ABNORMAL GLUCOSE 09/17/2016 ISABELLA NEWSOME MD Ot Z34.81 ENCOUNTER FOR SUPRVSN OF NORMAL PREGNANC 09/17/2016 LOS SCHMIDT MD Ot O20.8 OTHER HEMORRHAGE IN EARLY 09/17/2016 LOS SCHMIDT MD Ot O46.91 ANTEPARTUM HEMORRHAGE, UNSPECIFIED, FIRS 09/17/2016 LOS SCHMIDT MD Ot Z3A.13 13 WEEKS GESTATION OF 09/19/2016 LOS SCHMIDT MD Ot O20.8 OTHER HEMORRHAGE IN EARLY 09/19/2016 LOS SCHMIDT MD Ot O46.91 ANTEPARTUM HEMORRHAGE, UNSPECIFIED, FIRS 09/19/2016 LOS SCHMIDT MD Ot Z3A.13 13 WEEKS GESTATION OF 10/07/2016 ISABELLA NEWSOME MD, Ot Z34.81 ENCOUNTER FOR SUPRVSN OF NORMAL PREGNANC 10/14/2016 ISABELLA NEWSOME MD, Ot Z34.81 ENCOUNTER FOR SUPRVSN OF NORMAL PREGNANC 02/05/2017 DANIS CHRISTINA MD Ot O47.03 FALSE LABOR BEFORE 37 COMPLETED WEEKS OF 02/05/2017 DANIS CHRISTINA MD, Ot Z3A.34 34 WEEKS GESTATION OF 02/08/2017 CARRI SPARKSJANEDANIS Fernando Kris O47.03 FALSE LABOR BEFORE 37 COMPLETED WEEKS OF 02/08/2017 DANIS CHRISTINA MD, Ot Z3A.34 34 WEEKS GESTATION OF 02/11/2017 CARRI SPARKSJANEDANIS Fernando Kris O47.03 FALSE LABOR BEFORE 37 COMPLETED WEEKS OF 02/11/2017 CARRI SPARKSJANEDANIS Fernando Kris Z3A.34 34 WEEKS GESTATION OF Procedures Code Description Performed By Performed On [id number] OF POC, ABORTIFACIENT, VIA OPEN 06/30/2015 [id number] REPAIR RECTUM, OPEN APPROACH 07/01/2015 [id number] REPAIR ANAL SPHINCTER, OPEN APPROACH 07/01/2015 [id number] REPAIR PERINEUM MUSCLE, OPEN APPROACH 07/01/2015 [id number] DIVISION OF FEMALE PERINEUM, EXTERNAL AP 07/01/2015 [id number] EXTRACTION OF PRODUCTS OF CONCEPTION, AR 07/01/2015 Results Test Result Range Complete urinalysis with reflex to culture - 07/22/16 12:02 Urine color determination YELLOW NRG Urine clarity determination CLEAR NRG Urine pH measurement by test strip 6 5-9 Specific gravity of urine by test strip 1.025 1.016- 1.022 Urine protein assay by test strip, semi-quantitative 2+ NEGATIVE Urine glucose detection by automated test strip NEGATIVE NEGATIVE Erythrocytes detection in urine sediment by light microscopy NEGATIVE NEGATIVE Urine ketones detection by automated test strip NEGATIVE NEGATIVE Urine nitrite detection by test strip NEGATIVE NEGATIVE Urine total bilirubin detection by test strip NEGATIVE NEGATIVE Urine urobilinogen measurement by automated test strip (mass/volume) NORMAL NORMAL Urine leukocyte esterase detection by dipstick NEGATIVE NEGATIVE Automated urine sediment erythrocyte count by microscopy (number/high power field) RARE NRG Automated urine sediment leukocyte count by microscopy (number/high power field ) RARE NRG Bacteria detection in urine sediment by light microscopy TRACE NRG Squamous epithelial cells detection in urine sediment by light microscopy 10-25 NRG Crystals detection in urine sediment by light microscopy NONE NRG Casts detection in urine sediment by light microscopy NONE NRG Mucus detection in urine sediment by light microscopy NEGATIVE NRG Complete urinalysis with reflex to culture NO NRG Complete urinalysis with reflex to culture - 09/17/16 03:10 Urine color determination RED NRG Urine clarity determination CLOUDY NRG Urine pH measurement by test strip 6.5 5-9 Specific gravity of urine by test strip 1.020 1.016- 1.022 Urine protein assay by test strip, semi-quantitative 4+ NEGATIVE Urine glucose detection by automated test strip NEGATIVE NEGATIVE Erythrocytes detection in urine sediment by light microscopy 5+ NEGATIVE Urine ketones detection by automated test strip NEGATIVE NEGATIVE Urine nitrite detection by test strip NEGATIVE NEGATIVE Urine total bilirubin detection by test strip NEGATIVE NEGATIVE Urine urobilinogen measurement by automated test strip (mass/volume) NORMAL NORMAL Urine leukocyte esterase detection by dipstick NEGATIVE NEGATIVE Automated urine sediment erythrocyte count by microscopy (number/high power field) TNTC NRG Automated urine sediment leukocyte count by microscopy (number/high power field ) RARE NRG Bacteria detection in urine sediment by light microscopy NEGATIVE NRG Crystals detection in urine sediment by light microscopy NONE NRG Casts detection in urine sediment by light microscopy NONE NRG Mucus detection in urine sediment by light microscopy LARGE NRG Complete urinalysis with reflex to culture NO NRG Complete blood count (CBC) with automated white blood cell (WBC) differential - 09/17/16 03:15 Blood leukocytes automated count (number/volume) 7.5 10*3/uL 4.3-11.0 Blood erythrocytes automated count (number/volume) 4.27 10*6/uL 4.35-5.85 Venous blood hemoglobin measurement (mass/volume) 11.8 g/dL 11.5-16.0 Blood hematocrit (volume fraction) 34 % 35-52 Automated erythrocyte mean corpuscular volume 79 [foz_us] 80-99 Automated erythrocyte mean corpuscular hemoglobin (mass per erythrocyte) 28 pg 25-34 Automated erythrocyte mean corpuscular hemoglobin concentration measurement ( mass/volume) 35 g/dL 32-36 Automated erythrocyte distribution width ratio 14.1 % 10.0-14.5 Automated blood platelet count (count/volume) 201 10*3/uL 130-400 Automated blood platelet mean volume measurement 11.8 [foz_us] 7.4-10.4 Automated blood neutrophils/100 leukocytes 57 % 42-75 Automated blood lymphocytes/100 leukocytes 34 % 12-44 Blood monocytes/100 leukocytes 7 % 0-12 Automated blood eosinophils/100 leukocytes 1 % 0-10 Automated blood basophils/100 leukocytes 0 % 0-10 Blood neutrophils automated count (number/volume) 4.3 10*3 1.8-7.8 Blood lymphocytes automated count (number/volume) 2.6 10*3 1.0-4.0 Blood monocytes automated count (number/volume) 0.5 10*3 0.0-1.0 Automated eosinophil count 0.1 10*3/uL 0.0-0.3 Automated blood basophil count (count/volume) 0.0 10*3/uL 0.0-0.1 ABO+Rh group - 09/17/16 03:15 ABO+Rh group AP [facility] Transfusion band number [id number] [facility] Comprehensive metabolic panel - 09/17/16 03:15 Serum or plasma sodium measurement (moles/volume) 137 mmol/L 135-145 Serum or plasma potassium measurement (moles/volume) 3.3 mmol/L 3.6-5.0 Serum or plasma chloride measurement (moles/volume) 105 mmol/L 98-107 Carbon dioxide 19 mmol/L 21-32 Serum or plasma anion gap determination (moles/volume) 13 mmol/L 5-14 Serum or plasma urea nitrogen measurement (mass/volume) 7 mg/dL 7-18 Serum or plasma creatinine measurement (mass/volume) 0.61 mg/dL 0.60-1.30 Serum or plasma urea nitrogen/creatinine mass ratio 11 [facility] Serum or plasma creatinine measurement with calculation of estimated glomerular filtration rate > [facility] Serum or plasma glucose measurement (mass/volume) 78 mg/dL 70-105 Serum or plasma calcium measurement (mass/volume) 9.1 mg/dL 8.5-10.1 Serum or plasma total bilirubin measurement (mass/volume) 0.3 mg/dL 0.1-1.0 Serum or plasma alkaline phosphatase measurement (enzymatic activity/volume) 92 U/L 40-136 Serum or plasma aspartate aminotransferase measurement (enzymatic activity/ volume) 13 U/L 5-34 Serum or plasma alanine aminotransferase measurement (enzymatic activity/volume ) 14 U/L 0-55 Serum or plasma protein measurement (mass/volume) 6.9 g/dL 6.4-8.2 Serum or plasma albumin measurement (mass/volume) 4.0 g/dL 3.2-4.5 Serum or plasma choriogonadotropin measurement (units/volume) - 09/17/16 03:15 Serum or plasma choriogonadotropin measurement (units/volume) 00318 m[iU]/mL <5 Encounters ACCT No. Visit Date/Time Discharge Status Pt. Type Provider Facility Loc./Unit Complaint [id number] 01/08/2015 15:39:00 01/08/2015 15:39:00 DIS Outpatient Lilia Arteaga DO Gloria JEANNETTE [id number] 02/05/2017 12:33:00 02/05/2017 15:31:00 DIS Outpatient DANIS CHRISTINA MD [facility] WSo HIP AND LOWER BACK PAIN [id number] 09/17/2016 03:00:00 09/17/2016 04:54:00 DIS Emergency BRAYAN SPARKS, LOS Gutiérrez [facility] ER POSS MISCARRIAGE [id number] 08/18/2016 12:07:00 08/18/2016 23:59:59 CLS Outpatient ISABELLA NEWSOME MD [facility] RAD NORMAL IN MULTIGRAVIDA [id number] 07/22/2016 11:53:00 07/22/2016 12:50:00 DIS Emergency MICHAEL SPARKS, CARINA Rodriguez [facility] ER BACK PAIN, 6 WEEKS PREG [id number] 06/30/2015 18:20:00 07/03/2015 15:15:00 DIS Inpatient ISABELLA NEWSOME MD [facility] LDRP INDUCTION [id number] 04/23/2015 13:59:00 04/23/2015 23:59:59 CLS Outpatient ISABELLA NEWSOME MD [facility] LAB ABNORMAL GLUCOSE [id number] 04/12/2015 16:07:00 04/12/2015 17:30:00 DIS Outpatient ISABELLA NEWSOME MD [facility] WSo LOWER BACK PAIN [id number] 02/24/2015 12:50:00 02/24/2015 23:59:59 CLS Outpatient SRIDEVI RAMIREZ APRN [facility] RAD
--- OUTSIDE RECORDS SUMMARY | 2017-08-23 23:49 | XMS REPORT ---
Author ISABELLA Gurrola [facility] eClinicalWorks Address Unknown Phone Unavailable Care Team Providers Care Package Sorter Name Role Phone ISABELLA NEWSOME CP Unavailable Allergies No Known Allergies Problems Problem Type Condition Code Onset Dates Condition Status Problem Supervision of normal first V22.0 Active Medications No Known Medications Results No Known Results Summary Purpose eClinicalWorks Submission
--- OUTSIDE RECORDS SUMMARY | 2017-08-23 23:49 | XMS REPORT ---
Author ELIANA Gaytan Organization eClinicalWorks Address Unknown Phone Unavailable Care Team Providers Care Portfolio Director Name Role Phone ELIANA VERAS CP Unavailable Allergies No Known Allergies Problems Problem Type Condition ICD-9 Code Onset Dates Condition Status Problem Supervision of normal first V22.0 Active Medications No Known Medications Results No Known Results Summary Purpose eClinicalWorks Submission
--- OUTSIDE RECORDS SUMMARY | 2017-08-23 23:49 | XMS REPORT ---
Author ELIANA Gaytan [facility] eClinicalWorks Address Unknown Phone Unavailable Care Team Providers Care Senior Planner Name Role Phone ELIANA VERAS CP Unavailable [...]
--- OUTSIDE RECORDS SUMMARY | 2017-08-23 23:49 | XMS REPORT ---
Author Author ISREAL PERSAUD Organization [employer] Address Unknown Phone Unavailable Care Team Providers Care Acrobatic Dancer Name Role Phone ISREAL PERSAUD CP Unavailable Allergies, Adverse Reactions, Alerts Substance Reaction Event Type N.K.D.A. Info Not Available Non Drug Allergy Problems Problem Type Condition Code Onset Dates Condition Status Assessment Allergic rhinitis J30.9 Active Assessment Cough R05 Active Problem Supervision of normal first V22.0 Active Medications Medication Code System Code Instructions Start Date End Date Status Dosage Cetirizine HCl [facility] [address]-68 10 MG Orally Once a day Aug 25, 2015 as directed Procedures Procedure Coding System Code Date Office Visit, Est Pt., Level 3 CPT-4 83072 Aug 25, 2015 Vital Signs Date/Time: Aug 25, 2015 Temperature 98.2 F Weight 235.6 lbs Height 67 in BMI 36.90 Index Blood Pressure Diastolic 82 mmHg Blood Pressure Systolic 140 mmHg Cardiac Monitoring Heart Rate 84 bpm BMIPercentile 97.7 % Wt Percentile 99.13 % Results No Known Results Summary Purpose [employer] Submission
--- OUTSIDE RECORDS SUMMARY | 2017-08-23 23:49 | XMS REPORT ---
Author Author ISABELLA NEWSOME [facility] Address [address] [place] [address] Care Team Providers Care Rerolling Machine Operator Name Role Phone ISABELLA NEWSOME Unavailable PROBLEMS Type Condition ICD9-CM Code SNV31-MV Code Onset Dates Condition Status SNOMED Code Problem History of anemia Z86.2 Active 266674403 Problem Elevated blood pressure I10 Active 93982731 Problem Abnormal glucose R73.09 Active 141774765 Problem Anemia D64.9 Active 020510724 Problem Elevated liver enzymes R74.8 Active [id number] ALLERGIES Substance Reaction Event Type Date Status N.K.D.A. Unknown Non Drug Allergy Jun, Unknown SOCIAL HISTORY No smoking Hx information available PLAN OF CARE VITAL SIGNS MEDICATIONS No Known Medications RESULTS No Results PROCEDURES No Known procedures IMMUNIZATIONS No Known Immunizations
--- OUTSIDE RECORDS SUMMARY | 2017-08-23 23:49 | XMS REPORT ---
Author Author ISABELLA NEWSOME [facility] [employer] Address Unknown Phone Unavailable Care Team Providers Care Mailroom Courier Name Role Phone ISABELLA NEWSOME Unavailable Allergies No Known Allergies Problems Problem Type Condition Code Onset Dates Condition Status Problem Supervision of normal first V22.0 Active Medications No Known Medications Results No Known Results Summary Purpose [employer] Submission
[2017-08-24 01:25] VITALS: BP 123/76
== END 2017-08-24 02:30 | disposition left against medical advice (07) ==
LOC: ER 22:41 → EDUNIT# 22:41 → ER 08-24 02:30
DX: M25.571 Pain in right ankle and joints of right foot (principal); M25.572 Pain in left ankle and joints of left foot
CPT/HCPCS: 99281